=== PATIENT | male | born 1965 | race Caucasian/White ===

== ENCOUNTER 2016-11-19 01:25 | Emergency (ER) | payer SELFPAY ==
[~2016-11-19] VITALS: Ht 195.6 cm; Wt 121.2 kg
[2016-11-19 02:56] LABS: EOSINOPHIL (%) 2.8 % (0-5); EOSINOPHIL COUNT 0.2 K/uL (0-0.3); HEMATOCRIT 43.9 % (38.0-50.0); IMMATURE GRANULOCYTE (%) 0.6 % (0.0-0.7); LYMPHOCYTE COUNT 1.8 K/uL (1.0-2.8); MCH 30.1 PG (29.0-34.0); MCHC 33.5 G/DL (30.0-36.0); MEAN PLAT.VOLUME 11.5 uM^3 (9.0-12.4); MONOCYTE (%) 7.3 % (3-12); MONOCYTE COUNT 0.4 K/uL (0-0.8); NEUTROPHIL (%) 55.8 % (45-76); PLATELET COUNT 146 K/uL (156-360); RBC DIS.WIDTH-CV 12.3 % (11.8-14.6); RBC DIS.WIDTH-SD 40.5 % (39-53); RED BLOOD COUNT 4.88 M/uL (4.00-5.50); WHITE BLOOD COUNT 5.3 K/uL (4.1-10.2)
[2016-11-19 03:16] LABS: CHLORIDE 106 mEq/L (99-109); POTASSIUM 3.7 mEq/L (3.7-5.4); SODIUM 138 mEq/L (136-147)
[2016-11-19 03:17] LABS: GLUCOSE 110 mg/dL (70-99)
[2016-11-19 03:19] LABS: ANION GAP 9 MEQ/L (2-14)
[2016-11-19 03:21] LABS: GFR ESTIMATE (CALCULATED) > 59 mL/min/
[2016-11-19 03:22] LABS: UREA NITROGEN (BUN) 22 mg/dL (9-23)
[2016-11-19 03:28] LABS: TROP-I INTERPRETATION NEGATIVE; TROPONIN-I < 0.01 ng/mL (0.0-0.30)
[2016-11-19] MEDS ORDERED: XANAX0.25 MG PO (05:21)
[2016-11-19 05:31] LABS: TROP-I INTERPRETATION NEGATIVE; TROPONIN-I < 0.01 ng/mL (0.0-0.30)
[2016-11-19 05:50] VITALS: BP 141/89
== END 2016-11-19 05:54 | disposition home or self-care (01) ==
LOC: EME 01:25
PROVIDERS: Emergency Medicine
DX: R07.9 Chest pain, unspecified (principal); F43.9 Reaction to severe stress, unspecified; R06.02 Shortness of breath; G47.00 Insomnia, unspecified
CPT/HCPCS: 71020; 80048; 84484; 85025; 93005; 99281; 99285